=== PATIENT | female | born 1980 | race Caucasian/White ===

== ENCOUNTER 2019-08-27 18:37 | Emergency (ER) | payer BC ==
[2019-08-27] MEDS ORDERED: AMOXIC-POT CLAV 875MG STARTER PACK 2 TAB BTL PO STA (19:31)
[2019-08-27] MEDS ORDERED: DEXAMETHASONE 4 MG TAB PO STA (19:31)
--- NOTE | 2019-08-27 19:36 | ED ---
Skin/Abscess/FB HPI - General Chief complaint: Skin/Abscess/Foreign Body Stated complaint: FB in throat Time Seen by Provider: 08/27/19 19:07 Source: patient Mode of arrival: ambulatory Limitations: no limitations - History of Present Illness Initial comments: 39yo female sent from Urgent care for finger nail in throat. States she inhaled a finger nail and can feel it scratching for the past 5 days in the back of her throat. States moves positions, hurt with eating/swallowing. Denies eatin fish/or bony meat or concern for other type of FB. Denies fevers, States she has made many attempts to eat/drink different things and now her throat is getting sore. Went to urgent care and was told to come to ER for evaluation. Patient denies difficulty breathing/swallowing, new medications. Patient appears well on arrival-no signs of respiratory distress. - Related Data Previous Rx's Medication Instructions Recorded Amoxic-Pot Clav 875-125Mg 1 tab PO Q12HR 7 Days #14 tab 08/27/19 [Augmentin 875-125] Sucralfate [Carafate] 1 gm PO BID 1 Days #20 ml 08/27/19 Allergies Allergy/AdvReac Type Severity Reaction Status Date / Time No Known Allergies Allergy Verified 08/27/19 18:42 Review of Systems ROS Statement: Those systems with pertinent positive or pertinent negative responses have been documented in the HPI. ROS Other: All systems not noted in ROS Statement are negative. Past Medical History Past Medical History: No Reported History History of Any Multi-Drug Resistant Organisms: None Reported Past Surgical History: No Surgical Hx Reported, Tubal Ligation Past Psychological History: No Psychological Hx Reported, Anxiety, Depression Smoking Status: Current every day smoker Past Alcohol Use History: None Reported Past Drug Use History: Marijuana General Exam - General Exam Comments Initial Comments: General: The patient is awake and alert, in no distress Eye: +3 mm pupils are equal, round and reactive to light, extra-ocular movements are intact. No nystagmus. There is normal conjunctiva bilaterally. No signs of icterus. Ears, nose, mouth and throat: There are moist mucous membranes and no oral lesions. There is no noted fb in oropharynx. There is some erythema of the posterior oropharynx no tonsillar exudates or lesions. Uvula midline. No trismus tired oral secretions no tripoding. Neck: The neck is supple, there is no tenderness or JVD. Neurological: A&O x 3. CN II-XII intact grossly, There are no obvious motor or sensory deficits. Coordination appears grossly intact. Speech is normal. Skin: Skin is warm and dry and no rashes or lesions are noted. Psychiatric: Cooperative, appropriate mood & affect, normal judgment. Limitations: no limitations Course Vital Signs 08/27/19 08/27/19 18:43 20:24 Temperature 98.7 F 97.3 F L Pulse Rate 70 64 Respiratory 18 16 Rate Blood Pressure 160/97 140/97 O2 Sat by Pulse 99 98 Oximetry Medical Decision Making - Medical Decision Making Sent from urgent care for possible finger nail in throat. some redness of throat on exam. No signs of airway compromise. No stridor/uvula midline. Patient XR soft tissues neck (-) which was obtained after consulting ENT Dr. Belle who recommended symptomatic treatment and follow-up in office. He recommended soft diet. Patient has no additional complaints. She appears tearful that FB cannot be examined/removed today. I discussed ENT recommendation and will treat patient will ABx for oropharynx erythema as discussed with attending Dr. Cruz who also recommended attempt of use of carafate for symptomatic relief. Patient discharge in no respiratory distress. Disposition Clinical Impression: Superficial foreign body of throat Disposition: HOME SELF-CARE Condition: Good Instructions (If sedation given, give patient instructions): Foreign Body Ingestion (ED) Additional Instructions: Please use medication as discussed. Please follow-up with family doctor in the next 2 days, call ENT tomorrow to arrange f/u in next 24-48 hours. Please return to emergency room if the symptoms increase or worsen or for any other concerns. Prescriptions: Amoxic-Pot Clav 875-125Mg [Augmentin 875-125] 1 tab PO Q12HR 7 Days #14 tab Sucralfate [Carafate] 1 gm PO BID 1 Days #20 ml Is patient prescribed a controlled substance at d/c from ED?: No Referrals: Angel Chavez MD [Primary Care Provider] - 1-2 days Martin Belle MD [STAFF PHYSICIAN] - 1-2 days Time of Disposition: 19:34
--- NOTE | 2019-08-27 20:11 | XR ---
EXAMINATION TYPE: XR soft tissue neck DATE OF EXAM: 08/27/2019 COMPARISON: NONE HISTORY: Possible foreign body TECHNIQUE: 2 views FINDINGS: Epiglottis is normal. Prevertebral soft tissues appear normal. There is no evidence of radi opaque foreign body. Subglottic trachea is normal. Cervical vertebra show slight straightening. IMPRESSION: No evidence of a foreign body. A fingernail is probably not visible on plain x-ray.
[2019-08-27 20:25] VITALS: BP 140/97; PULSE 64; RESP 16; TEMP 97.3
== END 2019-08-27 20:25 | disposition home or self-care (01) ==
LOC: EC 18:37
DX: T17.298A Other foreign object in pharynx causing other injury, initial encounter (principal); F17.200 Nicotine dependence, unspecified, uncomplicated
CPT/HCPCS: 70360; 99283; J8540

== ENCOUNTER → 2019-09-03 | Day surgery (SDC) | payer BC ==
[2019-08-30 14:56] VITALS: BMI 24.0
[~2019-09-03] MED LIST: ACETAMINOPHEN IV (For NPO) 1,000 MG in EMPTY BAG 1 BAG IVPB ONE; DEXAMETHASONE SOD PHOSPHATE 10 MG/ML 1 ML VIAL IV ONE; DEXAMETHASONE SOD PHOSPHATE 10 MG/ML 1 ML VIAL ONE; GLYCOPYRROLATE 0.2 MG/ML 2 ML VIAL ONE; HYDROmorphone 0.5 MG/0.5 ML SYRINGE IVP PRN; LACTATED RINGERS 1,000 ML IV SCH; LIDOCAINE 1% (10MG/ML) FOR IV START INTRADERMA ONE; LIDOCAINE 1% INJ 10MG/ML (20 ML MDV) ONE; MIDAZOLAM 2 MG/2 ML VIAL IV PRN; NEOSTIGMINE 1 MG/ML 10 ML VIAL ONE; ONDANSETRON 4 MG/2 ML VIAL IVP ONE; ONDANSETRON 4 MG/2 ML VIAL ONE; PROPOFOL 10 MG/ML 20 ML VIAL IV ONE; Pre Op ABX Message 1 EACH MISC MISCELLANE ONE; ROCURONIUM BROMIDE 10 MG/ML 5 ML VIAL IV ONE; SCOPOLAMINE 1.5MG/72HR PATCH TRANSDERM ONE; SUCCINYLCHOLINE CHLORIDE 100 MG/5 ML SYR IV ONE; fentaNYL (PF) 50 MCG/ML 2 ML AMP ONE
--- NOTE | 2019-09-03 01:34 | HP ---
HISTORY AND PHYSICAL CHIEF COMPLAINT: Foreign body in the hypopharynx. HISTORY OF THE PRESENT ILLNESS: This patient is a 39-year-old female who was referred to my office from the [facility] Emergency Room for evaluation of possible foreign body in the hypopharynx. The patient states that last she was biting her nails and felt that she inhaled one of the nails and it lodged in her throat. Despite trying various maneuvers such as using bread, banana, etc., she was not able to remove the foreign body and it felt as if there was something sticking sharply in her throat. She [facility] and also at [facility]. No laboratory work or studies other than a plain x-ray of the neck were performed. Unfortunately, a fingernail would not show up on a plain x-ray. The patient presented to my office still complaining of having a foreign body in her throat, but she states that it seems to move from side to side. The pain she describes as being sharp. It is not interfering with her eating, but it does apparently cause the patient to be quite anxious. She has history of smoking approximately one pack of cigarettes per day and was cautioned to quit smoking for obvious health reasons. At the time that the patient was seen in the office, clinical examination including indirect laryngoscopy revealed no suspicious lesions of the floor of the mouth or the right or left base of tongue. However, it was noted that there was a suspicious area in the region of the vallecula and the epiglottis. Both the right and left piriform sinuses appeared to be free of any suspicious lesions. The tip of the epiglottis was touching the base of tongue, which is abnormal. Both true vocal cords appeared to move normally. Palpation of the neck, cranial nerves 2 through 12 and the remainder of the head and neck exam was essentially unremarkable. CHEST/CARDIOVASCULAR: Both lung hernandez are clear to percussion and auscultation. The patient is in regular sinus rhythm. S1 and S2 are present without evidence any murmurs, S3s or S4s. Peripheral pulses are bilaterally symmetrical and within normal limits. ABDOMEN: There is no evidence any masses, megaly, or tenderness. The abdomen is soft. Skin is unremarkable. Musculoskeletal and neurological are all within normal limits. PELVIC/RECTAL EXAM: This is deferred at this time because the patient has this done on a regular basis at her family physician's office. The remainder of the physical exam is essentially unremarkable. IMPRESSION: Foreign body in the hypopharynx. PLAN: The patient is scheduled undergo a suspension microlaryngoscopy under general anesthesia. ATTENTION RNS IN THE PRE-SURGICAL AREA: I have not ordered any pre-surgical prophylactic antibiotics for this patient. If the pharmacy department sends any pre- surgical prophylactic antibiotics to the pre-surgical area for this patient, that order should be cancelled and the medication should be returned to the pharmacy department and make sure that the patient's account is credited appropriately. I have ordered for this patient to receive 1000 mg of Ofirmev IV to be given once an intravenous line has been established. I have discussed the risks, benefits and alternative therapies for the above-mentioned procedure and for both sedation/analgesia as well as necessary blood product administration, if indicated, as they pertain to this patient. The patient has indicated his or her understanding and acceptance of the risks and procedures discussed. HAILEY / DAWIT: [id number] /
[2019-09-03 11:21] LABS: Glucose,Whole Blood 107 mg/dL (75-99)
[2019-09-03 13:14] VITALS: RESP 16; TEMP 97.2
[2019-09-03 14:18] VITALS: BP 116/77; PULSE 55
--- NOTE | 2019-09-03 23:23 | OP ---
OPERATIVE REPORT PREOPERATIVE DIAGNOSIS: Foreign body in the right hypopharynx. POSTOPERATIVE DIAGNOSIS: No foreign body found anywhere in the hypopharynx. ANESTHESIA: General. OPERATIVE PROCEDURE: Suspension microlaryngoscopy. SURGEON: Dr. Belle. COMPLICATIONS: None. ESTIMATED BLOOD LOSS: Zero. OPERATIVE PROCEDURE DESCRIPTION: The patient was placed on the operating table in supine position, and after uneventful induction and endotracheal intubation, satisfactory general anesthesia was obtained. Next, the patient was draped in the usual and customary fashion, following which, using the anterior commissure laryngoscope, this was placed into the oropharynx and the entire hypopharynx, including the right and left piriform sinuses, valleculae, epiglottis, base of tongue and both true vocal cords, were inspected and found to be free of any lesions. The left piriform sinus was found to be clear of any foreign body. The laryngoscope was then placed directly into the vallecula, and no suspicious foreign body (a fingernail clipping) was found. Following this, the laryngoscope was placed deeply into the right piriform sinus. Next the Lewy apparatus was attached to the handle of the laryngoscope and the laryngoscope was suspended on the patient's chest. Next, using the Zeiss operating microscope, the right piriform sinus was extensively examined using both the velvet-tip suction and also large closed straight- biting microlaryngeal forceps to push the tissue aside to even further open up the right piriform sinus. Again, we were looking for a possible fingernail clipping that had become lodged in this area, and none was found. The right piriform sinus was extensively suctioned, also. Despite significant probing of both the right and left piriform sinuses as well as inspection of the valleculae, no foreign body (fingernail clipping) was found. The patient was given 10 mg of Decadron intraoperatively to reduce any laryngeal edema. The only minor significant finding was that there was significant irritation/edema of the tip of the epiglottis such that the tip of the epiglottis was touching the base of tongue centrally. However, close inspection under magnification did not reveal any evidence of any possible fingernail clipping that had become lodged in either the base of tongue, right or left, or anything that had become lodged in the epiglottis itself. After this thorough inspection of the hypopharynx and all of its areas under direct magnification, no foreign body was found and the procedure was terminated. There were no intraoperative complications. The patient tolerated procedure well and was returned to the recovery room in satisfactory condition. MMMIGNON / KIRSTYN: [id number] /
== END ==
LOC: OR 10:23
PROVIDERS: ATTEND Otolaryngology
DX: R09.89 Other specified symptoms and signs involving the circulatory and respiratory systems (principal); F32.9 Major depressive disorder, single episode, unspecified; Z98.51 Tubal ligation status; Z79.899 Other long term (current) drug therapy
CPT/HCPCS: 81025; 31526; J1100; J2710; J2405; J2001; J3010; J0131; J0330; J2704; J1170

== ENCOUNTER 2024-04-05 10:07 | Day surgery (SDC) | payer BC ==
[2024-04-05 10:33] VITALS: BP 117/72; PULSE 71; RESP 16; TEMP 98
[2024-04-05] MEDS: SODIUM CHLORIDE 0.9% 1,000 ML IV SCH (10:35)
[2024-04-05] MEDS: IV FLUID CONTINUATION 1,000 ML IV ONE (10:35)
--- NOTE | 2024-04-05 14:42 | P.EPPROC ---
- EP Procedure Note Electrophysiology Procedure Note: Diagnosis Recurrent syncope Twelve-lead EKG shows sinus rhythm normal OK narrow QRS normal ST segments normal QT interval Tilt table test per protocol Baseline blood pressure 140/78 mmHg baseline heart rate 55 beats a minute Patient was tilted upright in angle of 70 degrees per protocol No significant change in heart rate or blood pressure no symptoms noted No evidence for neurocardiogenic syncope
== END 2024-04-05 13:11 | disposition home or self-care (01) ==
LOC: CATHEP 10:07
PROVIDERS: ATTEND Internal Medicine Clinical Cardiac Electrophysiology
DX: R55 Syncope and collapse (principal); E89.0 Postprocedural hypothyroidism; Q21.12 Patent foramen ovale; D50.9 Iron deficiency anemia, unspecified; R73.02 Impaired glucose tolerance (oral); N80.9 Endometriosis, unspecified; F33.41 Major depressive disorder, recurrent, in partial remission; F17.210 Nicotine dependence, cigarettes, uncomplicated; Z79.890 Hormone replacement therapy; Z79.624 Long term (current) use of inhibitors of nucleotide synthesis; Z79.899 Other long term (current) drug therapy; Z91.148 Patient's other noncompliance with medication regimen for other reason; Z85.850 Personal history of malignant neoplasm of thyroid; Z86.19 Personal history of other infectious and parasitic diseases
CPT/HCPCS: 81025; 93660